=== PATIENT | female | born 1970 | race Caucasian/White ===

== ENCOUNTER 2016-12-31 13:34 | Emergency (ER) | payer BC ==
--- NOTE | 2016-12-31 15:19 | UC ---
Respiratory Complaint HPI - HPI Summary HPI Summary: The patient comes in today for: 1. Sore throat, right ear pain, son has strep Onset: Sore throat this AM. Palliative/Provocative: Swallowing makes it worse. Hot tea helped. Quality: "Feels like there is a lump on the right side of my throat." Region: Mostly on the right posterior pharynx. Severity: 3/10 Time: Constant. Associated symptoms: Fevers: None. Rhinitis: Yellow Sinus pressure: None. Cough: NOne. Upper tooth pain: None. * - History of Current Complaint Stated Complaint: SORE THROAT,EAR PAIN Time Seen by Provider: 12/31/16 15:14 Hx Obtained From: Patient Hx Last Menstrual Period: "couple weeks ago." ?: No - Allergies/Home Medications Allergies/Adverse Reactions: Allergies Allergy/AdvReac Type Severity Reaction Status Date / Time Penicillins Allergy Unknown as a child Verified 12/31/16 15:32 seasonal Allergy Eyes Uncoded 12/31/16 15:32 Itchy/Swollen/Red/Watery Home Medications: Home Medications Multivitamins/Minerals TAB* [Thera M Plus TAB*] 1 tab PO DAILY 12/31/16 [ History Confirmed 12/31/16] Omeprazole CAP* [Prilosec CAP* 20 MG] 20 mg PO DAILY 12/31/16 [History Confirmed 12/31/16] PMH/Surg Hx/FS Hx/Imm Hx Previously Healthy: No - "Allergies." Endocrine History Of: Reports: Thyroid Disease - hypo Denies: Diabetes, Hyperthyroidism, Hypothyroidism, Dyslipidemia Cardiovascular History Of: Denies: Cardiac Disorders, Hypertension, Pacemaker/ICD, Myocardial Infarction , Congestive Heart Failure, Atrial Fibrillation, Deep Vein Thrombosis, Bleeding Disorders Respiratory History Of: Reports: Asthma - She states that it is exercise induced. Denies: COPD, Bronchitis, Pneumonia, Pulmonary Embolism GI/ History Of: Reports: Gastroesophageal Reflux Denies: Ulcer, Gastrointestinal Bleed, Gall Bladder Disease, Kidney Stones, Diverticulitis, Renal Disease, Urosepsis Neurological History Of: Denies: TIA, CVA, Dementia, Seizures, Migraine Psychological History Of: Denies: Anxiety, Depression, Bipolar Disorder, Schizophrenia, Post Traumatic Stress Disorder Cancer History Of: Denies: Lung Cancer, Colorectal Cancer, Breast Cancer, Prostate Cancer, Cervical Cancer Other History Of: Negative For: HIV, Hepatitis B, Hepatitis C, Anticoagulant Therapy - Surgical History Surgical History: Yes Surgery Procedure, Year, and Place: appendectomy, adenoids, ear tubes. gallbladder - Family History Known Family History: Positive: Diabetes, Other - adopted, unknown Negative: Cardiac Disease, Hypertension - Social History Occupation: Employed Full-time Alcohol Use: Occasionally Substance Use Type: None Smoking Status (MU): Never Smoked Tobacco - Immunization History Most Recent Influenza Vaccination: NOT YET Review of Systems Constitutional: Negative Skin: Negative Eyes: Negative ENT: Ear Ache Respiratory: Negative Cardiovascular: Negative Gastrointestinal: Negative Genitourinary: Negative All Other Systems Reviewed And Are Negative: Yes Physical Exam Triage Information Reviewed: Yes Appearance: Well-Appearing, No Pain Distress, Well-Nourished Vital Signs Reviewed: Yes Eyes: Positive: Conjunctiva Clear. Negative: Discharge ENT: Positive: Hearing grossly normal. Negative: Pharyngeal erythema, Nasal congestion, Nasal drainage, TM bulging, TM dull, TM red, Tonsillar swelling, Tonsillar exudate, Other: - TM's appeared retracted. Dental: Negative: Gross Decay/Caries @, Dental Fracture @ Neck: Positive: Supple, Nontender, No Lymphadenopathy. Negative: Nuchal Rigidity Respiratory: Positive: Chest non-tender, Lungs clear, No respiratory distress, No accessory muscle use. Negative: Crackles, Wheezing Cardiovascular: Positive: RRR, No Murmur Abdomen Description: Positive: Nontender, No Organomegaly, Soft. Negative: Distended, Guarding Musculoskeletal: Positive: Strength Intact, ROM Intact, No Edema Neurological: Positive: Alert, Muscle Tone Normal Psychological: Positive: Age Appropriate Behavior, Consolable Skin: Negative: rashes, breakdown UC Diagnostic Evaluation - Laboratory Diagnostic Studies Comment: strep test: (+) Respiratory Course/Dx - Course Course Of Treatment: Patient told of the positive strep test. - Differential Dx/Diagnosis Differential Diagnosis/HQI/PQRI: Bronchitis, Laryngitis, Sinusitis Provider Diagnoses: Strep pharyngitis Discharge - Discharge Plan Condition: Stable Disposition: HOME Patient Education Materials: Strep Throat (ED) Referrals: Gumaro Sinclair DO [Primary Care Provider] - 1 Week (Please see your primary care provider in about a week to see how well you are doing. If you get worse, please be seen sooner.)
[2016-12-31 15:33] VITALS: BP 142/76
== END 2016-12-31 16:06 | disposition home or self-care (01) ==
LOC: UCCORT 13:34
DX: J02.0 Streptococcal pharyngitis (principal); K21.9 Gastro-esophageal reflux disease without esophagitis; Z88.0 Allergy status to penicillin
CPT/HCPCS: 87651; 99212; G0463

== ENCOUNTER 2018-01-08 14:48 | Emergency (ER) | payer BC ==
[2018-01-08 17:27] VITALS: BP 134/84
[2018-01-08] MEDS ORDERED: Acetaminophen TAB* 325 MG PO ONE (17:29)
--- NOTE | 2018-01-08 17:45 | UC ---
UC General HPI - HPI Summary HPI Summary: sudden headache, fever, sinus congestion and cough at 11pm last night. no sob, v /d/dysuria - History of Current Complaint Chief Complaint: UCGeneralIllness Stated Complaint: FEVER, RESPIRATORY Time Seen by Provider: 01/08/18 17:30 Hx Obtained From: Patient Hx Last Menstrual Period: "couple weeks ago." Onset/Duration: Sudden Onset Timing: Constant Onset Severity: Moderate Pain Intensity: 0 Associated Signs & Symptoms: Positive: Cough, Fever, Headache. Negative: Abdominal Pain, Chest Pain, Diarrhea, Dysuria, Nausea, SOB - Allergy/Home Medications Allergies/Adverse Reactions: Allergies Allergy/AdvReac Type Severity Reaction Status Date / Time Penicillins Allergy Unknown Verified 01/08/18 17:22 Reaction Details seasonal Allergy Eyes Uncoded 01/08/18 17:22 Itchy/Swollen/Red/Watery Home Medications: Home Medications Aspirin EC Low Dose* [Ecotrin EC Low Dose 81 MG*] 81 mg PO DAILY 01/08/18 [ History Confirmed 01/08/18] Ibuprofen TAB* [Motrin TAB* 600 MG] 600 mg PO Q6H PRN 01/08/18 [History Confirmed 01/08/18] PMH/Surg Hx/FS Hx/Imm Hx - Additional Past Medical History Additional PMH: sinusitis Other History Of: Negative For: HIV, Hepatitis B, Hepatitis C, Anticoagulant Therapy - Surgical History Surgical History: Yes Surgery Procedure, Year, and Place: appendectomy, adenoids, ear tubes. gallbladder - Family History Known Family History: Positive: Diabetes, Other - adopted, unknown Negative: Cardiac Disease, Hypertension - Social History Occupation: Employed Full-time Lives: With Family Alcohol Use: Rare Substance Use Type: None Smoking Status (MU): Never Smoked Tobacco - Immunization History Most Recent Influenza Vaccination: NOT YET Vaccination Up to Date: Yes Review of Systems Constitutional: Fever, Chills Skin: Negative Eyes: Negative ENT: Nasal Discharge, Sinus Congestion, Sinus Pain/Tenderness Respiratory: Cough Cardiovascular: Negative Gastrointestinal: Negative Genitourinary: Negative Motor: Negative Neurovascular: Negative Musculoskeletal: Negative Neurological: Negative Psychological: Negative Is Patient Immunocompromised?: No All Other Systems Reviewed And Are Negative: Yes Physical Exam Triage Information Reviewed: Yes Appearance: Well-Appearing Vital Signs: Initial Vital Signs Temp 102 F 01/08/18 17:22 Pulse 98 01/08/18 17:22 Resp 16 01/08/18 17:22 BP 134/84 01/08/18 17:22 Pulse Ox 97 01/08/18 17:22 Vital Signs Reviewed: Yes Eyes: Positive: Conjunctiva Clear ENT: Positive: Pharynx normal, Nasal congestion, TMs normal. Negative: Sinus tenderness Neck: Positive: Supple, Nontender, No Lymphadenopathy Respiratory: Positive: Lungs clear, Normal breath sounds, No respiratory distress Cardiovascular: Positive: RRR, No Murmur, Pulses Normal Abdomen Description: Positive: Nontender, No Organomegaly, Soft Bowel Sounds: Positive: Present Musculoskeletal Exam: Normal Neurological: Positive: Alert Psychological: Positive: Age Appropriate Behavior Skin: Positive: Other - Flushed, warm, dry. Diagnostics - Laboratory Diagnostic Studies Completed/Ordered: Influenza B+ Course/Dx - Course Course Of Treatment: + flu, will tx tamiflu. - Differential Dx - Multi-Symptom Provider Diagnoses: Influenza B Discharge - Discharge Plan Condition: Stable Disposition: HOME Prescriptions: Oseltamivir Phosphate [Tamiflu] 75 mg PO BID 5 Days #10 capsule Patient Education Materials: Influenza (DC) Forms: *Work Release Referrals: Cynthia Hadley PA [Primary Care Provider] - 7 Days
== END 2018-01-08 17:57 | disposition home or self-care (01) ==
LOC: UCCORT 14:48
DX: J10.1 Influenza due to other identified influenza virus with other respiratory manifestations (principal)
CPT/HCPCS: 87502; 99212; A9270-GY; G0463

== ENCOUNTER 2018-05-14 16:45 | Emergency (ER) | payer BC ==
[2018-05-14 16:58] VITALS: BP 158/84
--- NOTE | 2018-05-14 17:21 | UC ---
Throat Pain/Nasal Deandre HPI - HPI Summary HPI Summary: C/O sore throat and generalized malaise X 3 days. - History of Current Complaint Hx Obtained From: Patient Hx Last Menstrual Period: n/a ?: No Onset/Duration: Sudden Onset, Lasting Days, Still Present Severity: Moderate Pain Intensity: 6 Cough: None Associated Signs & Symptoms: Positive: Dysphagia - Epiglottits Risk Factors Epiglottis Risk Factors: Negative <Lila Varghese NP - Last Filed: 05/14/18 17:17> <Valerio Chong - Last Filed: 05/14/18 18:17> - History of Current Complaint Chief Complaint: UCGeneralIllness Stated Complaint: SORE THROAT Time Seen by Provider: 05/14/18 16:53 - Allergies/Home Medications Allergies/Adverse Reactions: Allergies Allergy/AdvReac Type Severity Reaction Status Date / Time Penicillins Allergy Unknown Verified 05/14/18 16:55 Reaction Details seasonal Allergy Eyes Uncoded 05/14/18 16:55 Itchy/Swollen/Red/Watery PMH/Surg Hx/FS Hx/Imm Hx Previously Healthy: Yes Other History Of: Negative For: HIV, Hepatitis B, Hepatitis C, Anticoagulant Therapy - Surgical History Surgical History: Yes Surgery Procedure, Year, and Place: appendectomy, adenoids, ear tubes. gallbladder, partial hysterectomy, ureter repair - Family History Known Family History: Positive: Diabetes, Other - adopted, unknown Negative: Cardiac Disease, Hypertension - Social History Occupation: Employed Full-time Lives: With Family Alcohol Use: Rare Substance Use Type: None Smoking Status (MU): Never Smoked Tobacco Have You Smoked in the Last Year: No - Immunization History Most Recent Influenza Vaccination: NOT YET Vaccination Up to Date: Yes <Lila Varghese NP - Last Filed: 05/14/18 17:17> Review of Systems Constitutional: Chills, Fatigue Skin: Negative Eyes: Negative ENT: Sore Throat Respiratory: Negative Cardiovascular: Negative Gastrointestinal: Negative Genitourinary: Negative Motor: Negative Neurovascular: Negative Musculoskeletal: Myalgia Neurological: Negative Psychological: Negative Is Patient Immunocompromised?: No All Other Systems Reviewed And Are Negative: Yes <Lila Varghese NP - Last Filed: 05/14/18 17:17> Physical Exam Triage Information Reviewed: Yes Appearance: Ill-Appearing Vital Signs: Initial Vital Signs Temp 99.2 F 05/14/18 16:52 Pulse 73 05/14/18 16:52 Resp 16 05/14/18 16:52 BP 158/84 05/14/18 16:52 Pulse Ox 98 05/14/18 16:52 Vital Signs Reviewed: Yes Eye Exam: Normal ENT Exam: Other ENT: Positive: Pharyngeal erythema, Tonsillar swelling, Tonsillar exudate Dental Exam: Normal Neck exam: Normal Respiratory Exam: Normal Cardiovascular Exam: Normal Musculoskeletal Exam: Normal Neurological Exam: Normal Psychological Exam: Normal Skin Exam: Normal <Lila Varghese NP - Last Filed: 05/14/18 17:17> Vital Signs: Initial Vital Signs Temp 99.2 F 05/14/18 16:52 Pulse 73 05/14/18 16:52 Resp 16 05/14/18 16:52 BP 158/84 05/14/18 16:52 Pulse Ox 98 05/14/18 16:52 <Valerio Chong - Last Filed: 05/14/18 18:17> Diagnostics - Laboratory Diagnostic Studies Completed/Ordered: rapid strep: positive <Lila Varghese NP - Last Filed: 05/14/18 17:17> Throat Pain/Nasal Course/Dx - Differential Dx/Diagnosis Differential Diagnosis/HQI/PQRI: Pharyngitis, Tonsillitis Provider Diagnoses: strep throat <Lila Varghese NP Last Filed: 05/14/18 17:17> Discharge - Sign-Out/Discharge Documenting (check all that apply): Discharge/Admit/Transfer - Billing Disposition and Condition Condition: STABLE Disposition: Home <Lila Varghese NP - Last Filed: 05/14/18 17:17> - Billing Disposition and Condition Condition: STABLE Disposition: Home <Valerio Chong - Last Filed: 05/14/18 18:17> - Discharge Plan Condition: Stable Disposition: HOME Prescriptions: Clindamycin Cap(NF) [Clindamycin Cap 300 mg Cap(NF)] 300 mg PO Q8H #30 cap Patient Education Materials: Strep Throat (ED) Referrals: Cynthia Hadley PA [Primary Care Provider] - If Needed Additional Instructions: Per institutional requirements, I have reviewed the chart, however, I was not consulted specifically or made aware of this patient by the above midlevel provider. I did not personally evaluate, interact with , or disposition this patient.
== END 2018-05-14 17:17 | disposition home or self-care (01) ==
LOC: UCCORT 16:45
DX: J02.0 Streptococcal pharyngitis (principal); Z88.0 Allergy status to penicillin
CPT/HCPCS: 87651; 99212; G0463

== ENCOUNTER 2018-09-10 18:48 | Emergency (ER) | payer BC ==
[2018-09-10 19:10] VITALS: BP 159/87
--- NOTE | 2018-09-10 19:17 | UC ---
Skin Complaint HPI - HPI Summary HPI Summary: 48-year-old woman here today with chief complaint of left thumb swelling. Started a couple weeks ago. It's on the ulnar aspect of the thumbnail. Initially was red and swollen and tender to palpation. Later a white area developed which appears to be a pUstual. It is not drained. It's only tender to palpation. No known trauma although the patient was gardening prior to the pain starting. - History of Current Complaint Chief Complaint: UCUpperExtremity Time Seen by Provider: 09/10/18 19:08 Stated Complaint: SWOLLEN LFT THUMB Hx Last Menstrual Period: n/a Pain Intensity: 0 - Allergy/Home Medications Allergies/Adverse Reactions: Allergies Allergy/AdvReac Type Severity Reaction Status Date / Time Penicillins Allergy Unknown Verified 09/10/18 19:08 Reaction Details seasonal Allergy Eyes Uncoded 09/10/18 19:08 Itchy/Swollen/Red/Watery Review of Systems Constitutional: Negative Skin: Rash - SEE HPI Eyes: Negative ENT: Negative Respiratory: Negative Cardiovascular: Negative Gastrointestinal: Negative Motor: Negative Neurovascular: Negative Musculoskeletal: Negative Neurological: Negative Psychological: Negative Is Patient Immunocompromised?: No All Other Systems Reviewed And Are Negative: Yes PMH/Surg Hx/FS Hx/Imm Hx Previously Healthy: Yes - BENIGN SCLERODERMA Other History Of: Negative For: HIV, Hepatitis B, Hepatitis C, Anticoagulant Therapy - Surgical History Surgical History: Yes Surgery Procedure, Year, and Place: appendectomy, adenoids, ear tubes. gallbladder, partial hysterectomy, ureter repair - Family History Known Family History: Positive: Diabetes, Other - adopted, unknown Negative: Cardiac Disease, Hypertension - Social History Alcohol Use: Rare Substance Use Type: None Smoking Status (MU): Never Smoked Tobacco Have You Smoked in the Last Year: No - Immunization History Most Recent Influenza Vaccination: NOT YET Vaccination Up to Date: Yes Physical Exam Triage Information Reviewed: Yes Appearance: Well-Appearing, No Pain Distress, Well-Nourished Vital Signs: Initial Vital Signs Temp 99.1 F 09/10/18 19:06 Pulse 85 09/10/18 19:06 Resp 16 09/10/18 19:06 BP 159/87 09/10/18 19:06 Pulse Ox 99 09/10/18 19:06 Vital Signs Reviewed: Yes Eye Exam: Normal Eyes: Positive: Conjunctiva Clear Neck exam: Normal Neck: Positive: Supple Respiratory: Positive: No respiratory distress Musculoskeletal Exam: Normal Musculoskeletal: Positive: Strength Intact, ROM Intact Neurological Exam: Normal Neurological: Positive: Alert, Muscle Tone Normal Psychological Exam: Normal Psychological: Positive: Age Appropriate Behavior Skin: Positive: Other - The left thumb on the ulnar aspect there is a 5 mm area of right which appears to be a pustule skin surrounding erythematous no streaking. Course/Dx - Course Course Of Treatment: I discussed the thumb x-rays with the patient I did not see any foreign body. No fracture. Radiologist reading pending. Plan is to treat with Keflex. - Diagnoses Provider Diagnoses: LEFT THUMB PARONYCHIA Discharge - Sign-Out/Discharge Documenting (check all that apply): Patient Departure All imaging exams completed and their final reports reviewed: No - Discharge Plan Condition: Stable Disposition: HOME Prescriptions: Cephalexin CAP* [Keflex CAP*] 500 mg PO QID #40 cap Patient Education Materials: Paronychia (ED) Referrals: Cynhtia Hadley PA [Primary Care Provider] - Additional Instructions: FOLLOW UP WITH YOUR DOCTOR IF NOT COMPLETELY IMPROVED. GET RECHECKED FOR ANY WORSENING OF YOUR CONDITION OR QUESTIONS OR CONCERNS. - Billing Disposition and Condition Condition: STABLE Disposition: Home
--- NOTE | 2018-09-11 07:04 | RAD ---
INDICATION: Left thumb swelling. TECHNIQUE: 3 views of the left thumb were obtained. FINDINGS: There is soft tissue swelling which is most prominent adjacent to the distal phalanx. No fracture or radiopaque foreign body is seen. 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 IMPRESSION: NO FRACTURE IS SEEN. IF THERE IS CONCERN FOR A FOREIGN BODY CONSIDER ULTRASONOGRAPHY FOR FURTHER EVALUATION. R2
--- NOTE | 2018-09-13 07:34 | UC ---
- Progress Note Progress Note: wound no organisms on keflex await sensitivity ljj 09/13/18 Discharge - Sign-Out/Discharge Documenting (check all that apply): Post-Discharge Follow Up All imaging exams completed and their final reports reviewed: No - Discharge Plan Condition: Stable Disposition: HOME Prescriptions: Cephalexin CAP* [Keflex CAP*] 500 mg PO QID #40 cap Patient Education Materials: [place] (ED) Referrals: Cynthia Hadley PA [Primary Care Provider] - Additional Instructions: FOLLOW UP WITH YOUR DOCTOR IF NOT COMPLETELY IMPROVED. GET RECHECKED FOR ANY WORSENING OF YOUR CONDITION OR QUESTIONS OR CONCERNS. - Billing Disposition and Condition Condition: STABLE Disposition: Home
== END 2018-09-10 20:14 | disposition home or self-care (01) ==
LOC: UCCORT 18:48
DX: L03.012 Cellulitis of left finger (principal); M34.9 Systemic sclerosis, unspecified; J30.2 Other seasonal allergic rhinitis; Z88.0 Allergy status to penicillin
CPT/HCPCS: 10060; 87070; 87205; 99212; G0463